=== PATIENT | female | born 1940 | race Caucasian/White ===

== ENCOUNTER 2017-06-10 11:04 | Outpatient (CLI) | payer OTHER | END 2017-06-10 22:13 | disposition home or self-care (01) | LOC: SMA 11:04 | PROVIDERS: ATTEND Internal Medicine | DX: Z12.31 Encounter for screening mammogram for malignant neoplasm of breast (principal) | CPT/HCPCS: 77067 ==

== ENCOUNTER → 2018-06-09 | Outpatient (CLI) | payer OTHER | END | disposition home or self-care (01) | LOC: SUS 10:55 | PROVIDERS: ATTEND Internal Medicine | DX: R63.4 Abnormal weight loss (principal) | CPT/HCPCS: 76700-TC ==

== ENCOUNTER 2018-06-17 10:55 | Outpatient (CLI) | payer OTHER | END 2018-06-17 21:02 | disposition home or self-care (01) | LOC: SMA 10:55 | PROVIDERS: ATTEND Internal Medicine | DX: Z12.31 Encounter for screening mammogram for malignant neoplasm of breast (principal) | CPT/HCPCS: 77067 ==

== ENCOUNTER 2019-09-15 10:54 | Outpatient (CLI) | payer OTHER | END 2019-09-15 20:29 | disposition home or self-care (01) | LOC: SMA 10:54 | DX: Z12.31 Encounter for screening mammogram for malignant neoplasm of breast (principal); N64.89 Other specified disorders of breast | CPT/HCPCS: 77067 ==